=== PATIENT | male | born 1995 | race African-American/Black ===

== ENCOUNTER 2017-08-06 23:34 | Emergency (ER) | payer BC ==
[~2017-08-06] VITALS: Ht 185.4 cm; Wt 80.4 kg
[2017-08-06 23:36] VITALS: PULSE 60; TEMP 37.2; O2SAT 97; Ht 185.4 cm; Wt 80.4 kg
[2017-08-07] MEDS ORDERED: LISI-461 PO (00:35)
[2017-08-07 01:15] VITALS: BP 127/55
--- NOTE | 2017-08-07 05:35 | EMERGENCY ROOM VISIT NOTE ---
History First contact with patient: 23:40 Chief Complaint: RIB PAIN Stated Complaint: RIB PAIN, SHIFTING FEELING History of Present Illness The patient is a 21 year old male who presents to the Emergency Room with complaints of left lower rib pain after getting hit during judo class 2 days ago and then tonight the pain worsened when he rolled over on his rib during dance class tonight. He describes pain as aching, ranging in severity 6/10 worse with movement and better with rest. It does not radiate. No prior rib fractures. Patient denies dyspnea, abdominal pain, fever, chills, cough, congestion. He does not smoke. Review of Systems See HPI for pertinent positives & negatives. A total of 10 systems reviewed and were otherwise negative. Past Medical/Surgical History Kidney disease Social History Smoking Status: Never Smoker Smokeless Tobacco Use: No Drug Use: none Occupation Status: [employer] student Current/Historical Medications Scheduled Lisinopril (Zestril), 10 MG PO DAILY Physical Exam Vital Signs Date Time Temp Pulse Resp B/P (MAP) Pulse Ox O2 Delivery O2 Flow Rate FiO2 08/07/17 01:15 127/55 08/06/17 23:36 37.2 60 18 131/59 97 Room Air Physical Exam VITALS: Vitals are noted on the nurse's note and reviewed by myself. Vital signs stable. GENERAL: Pleasant male, in no acute distress, nondiaphoretic, well-developed well-nourished. SKIN: The skin was without rashes, erythema, edema, or bruising. There is no tenting of the skin. Capillary reflex less than 2 seconds. HEAD: Normocephalic atraumatic. EARS: External auditory canals clear EYES: Pupils equal round and reactive to light and accommodation. Conjunctivae without injection, sclerae without icterus. Extraocular movements intact. NOSE: Patent, turbinates without inflammation or discharge. MOUTH: Mucous membranes moist. Pharynx without erythema or exudate. Uvula midline. Airway patent. Tongue does not deviate. NECK: Supple without nuchal rigidity. No lymphadenopathy. No thyromegaly. Cervical spine is nontender. No JVD. HEART: Regular rate and rhythm without murmurs gallops or rubs. Left lower chest wall tender to palpation easily reproducing symptoms. LUNGS: Clear to auscultation bilaterally without wheezes, rales or rhonchi. No dullness to percussion. No retractions or accessory muscle use. ABDOMEN: Positive bowel sounds x 4. Normal tympanic percussion. Soft, nontender, without masses or organomegaly. Reese sign negative. No guarding or rebound tenderness. MUSCULOSKELETAL: No muscle atrophy, erythema, or edema noted. NEURO: Patient was alert and oriented to person place and time. Normal sensation to light and sharp touch. No focal neurological deficits. Medical Decision & Procedures ED Course Prior records/ancillary studies reviewed. Triage Nursing notes reviewed. Additional history obtained from friend. The patient's history was concerning for chest pain. Differential diagnosis: Etiologies such as sprain, strain, fracture, contusion, pneumothorax, musculoskeletal, as well as others were entertained. Physical examination: As above. ER treatment provided: Incentive spirometry On reassessment the patient felt better. Diagnostic interpretation by me: Imaging studies: Chest CT negative for fracture or pulmonary injury per radiology Exam and history seem consistent with rib contusion. Patient had no fracture. No lung injury. Patient was neurovascularly and neurologically intact. He was advised to take NSAIDs for the pain and incentive spirometry. He is advised follow-up health services in a few days or here in the ER sooner for chest pain , fevers, difficulty breathing, worsening signs or symptoms or as needed. He was advised to avoid sports until symptoms resolve. By the evaluation outlined above emergent etiologies such as pneumonia, pneumothorax, as well as others were deemed relatively unlikely. The pt informed about the findings as listed above. All questions were answered and pleased with the treatment. Return instructions were outlined and the patient was discharged in stable condition. Referral: The patient was referred back to [facility] /primary care physician for follow-up in 2 to 3 days for a recheck of the current condition. Medical Decision As above Medication Reconcilliation Current Medication List: was personally reviewed by me Blood Pressure Screening Patient's blood pressure: Normal blood pressure Impression Primary Impression: Chest wall injury Departure Information Dispostion Home / Self-Care Condition GOOD Forms WORK / SCHOOL INSTRUCTIONS, HOME CARE DOCUMENTATION FORM, IMPORTANT VISIT INFORMATION Patient Instructions [facility], ED Contusion Rib Additional Instructions Incentive spirometry 10 times an hour while you're awake for the next 2 weeks. Ibuprofen(Motrin, Advil) may be used for fever or pain. Use 600mg every six hours as needed. Take with food. Avoid using more than 2400mg in a 24 hour period. Do not use 2400mg per day for more than three consecutive days without physician direction. Prolonged inappropriate use can lead to stomach upset or ulcers. (AND/OR) Acetaminophen(Tylenol) may be used for fever or pain. Use 1000mg every six hours as needed. Avoid using more than 3000mg in a 24 hour period. Rest and drink plenty of fluids as tolerated. Continue current medications. Avoid strenuous activities and anything that worsens your pain. Resume normal activities once your symptoms resolve. Return to the ER immediately for worsening or persistent chest pain, abdominal pain, vomiting, fevers, chest pains, difficulty breathing, worsening of your condition, or as needed. Follow up with your primary physician/[facility] in 2-3 days for a recheck of your current condition. Problem Qualifiers Primary Impression: Chest wall injury Encounter type: initial encounter Qualified Codes: S29.9XXA - Unspecified injury of thorax, initial encounter
--- NOTE | 2017-08-07 07:26 | DIAGNOSTIC IMAGING REPORT ---
(CHEST) THORAX WITHOUT CT DOSE: 309.42 mGy.cm HISTORY: Trauma left lower rib pain after injury TECHNIQUE: Multiaxial CT images of the chest were performed without contrast. A dose lowering technique was utilized adhering to the principles of ALARA. COMPARISON: None. FINDINGS: The lungs are clear. The mediastinal vascular structures are within normal limits. No mediastinal or hilar lymphadenopathy. No pleural effusion or pneumothorax. Limited views of the upper abdomen demonstrate a normal liver and spleen. IMPRESSION: No acute process. The above report was generated using voice recognition software. It may contain grammatical, syntax or spelling errors. Electronically signed by: Roberto Bourgeois M.D. 08/07/2017 7:24 AM Dictated Date/Time: 08/07/2017 7:22 AM
== END 2017-08-07 01:15 | disposition home or self-care (01) ==
LOC: C.EDB 23:36 → C.EDA 08-07 01:15
DX: S29.9XXA Unspecified injury of thorax, initial encounter (principal); W50.0XXA Accidental hit or strike by another person, initial encounter; N28.9 Disorder of kidney and ureter, unspecified